=== PATIENT | female | born 1990 | race Caucasian/White ===

== ENCOUNTER 2017-08-04 11:47 | Emergency (ER) | payer OTHER ==
[~2017-08-04] VITALS: Ht 157.5 cm; Wt 49.9 kg
[2017-08-04 12:52] LABS: *BILIRUBIN,URIN NEGATIVE (NEGATIVE); *BLOOD, URINE NEGATIVE (NEGATIVE); *CLARITY,URINE CLOUDY (CLEAR); *COLOR,URINE YELLOW (YELLOW); *KETONES,URINE NEGATIVE (NEGATIVE); *PROTEIN,URINE TRACE (NEGATIVE); *UROBILINOGEN,URINE 0.2 E.U./dl (NORMAL); LEUKOCYTE ESTERASE ,URINE 1+ (NEGATIVE); NITRITE, URINE NEGATIVE (NEGATIVE); PH,URINE 6.5 (5.0-8.0); UGLUCOSE NEGATIVE (NEGATIVE)
[2017-08-04 13:23] LABS: BACTERIA,URINE MANY /HPF (NONE SEEN); SQUAMOUS EPITHELIAL CELL,UR MANY /HPF (NONE SEEN)
[2017-08-04 13:24] LABS: *URINE HCG, QUAL NEGATIVE (NEGATIVE); MUCUS,URINE MODERATE /LPF (0-FEW)
--- NOTE | 2017-08-04 14:46 | NUR ---
Patient discharged to home in stable conditon. Written and verbal after care instructions given. Patient verbalizes understanding of instructions. Stressed follow up with pmd or return to ER for worsening s/s.
== END 2017-08-04 14:48 | disposition home or self-care (01) ==
LOC: ER 12:03
DX: R09.1 Pleurisy (principal)
CPT/HCPCS: 71020; 84703; A4663

== ENCOUNTER 2017-12-15 09:43 | Emergency (ER) | payer OTHER ==
[~2017-12-15] VITALS: Ht 157.5 cm; Wt 48.5 kg
--- NOTE | 2017-12-15 10:00 | NUR ---
SEEN AND EXAMINED BY MD. CHIEF C/O OF FRONTAL HEADACHE LEVEL 5. DENIES OF ANY VISUAL DISTURBANCES. NO N/V NOTED. AWAKE, ALERT AND ORIENTEDX3.
--- NOTE | 2017-12-15 10:10 | NUR ---
Miranda osuna in ED - 12/15/17 at 1151 by DIAN PT WENT TO CT VIA W/C. CONDITION STABLE.
--- NOTE | 2017-12-15 10:12 | NUR ---
PT MEDICATED WITH TORADOL 30MG IM LEFT DELTOID FOR C/O BERMUDEZ ORDERED.
[2017-12-15] MEDS ORDERED: KETOROLAC TROMETHAMINE 30 MG INJ IM ONE (10:15)
--- NOTE | 2017-12-15 10:15 | NUR ---
PT WENT TO CT VIA W/C. CONDITION IS STABLE.
--- NOTE | 2017-12-15 10:25 | NUR ---
PT BACK FROM CT. ABLE TO SLEEP AND STATED BERMUDEZ IS LESSER.
[2017-12-15] MEDS ORDERED: KETOROLAC TROMETHAMINE 30 MG INJ ONE (10:29)
--- NOTE | 2017-12-15 11:45 | NUR ---
SPOKEN WITH PT AND EXPLAINED LAB AND CT RESULT. DISCHARGE INSTRUCTIONS GIVEN TO PT WITH GOOD UNDERSTANDING. BERMUDEZ DOWN TO ZERO.
[2017-12-15 11:50] VITALS: BP 110/71
--- NOTE | 2017-12-15 11:50 | NUR ---
PT IS DISCHARGED AMBULATING AND WILL BE PICKED UP BY HER BOYFRIEND. CONDITION IS STABLE AND ALL BELONGINGS ON HER POSSESSION.
== END 2017-12-15 11:50 | disposition home or self-care (01) ==
LOC: ER 09:43
DX: R51 Headache (principal)
CPT/HCPCS: 70450; A4663; J1885

== ENCOUNTER 2019-02-15 09:26 | Emergency (ER) | payer OTHER ==
[~2019-02-15] VITALS: Ht 157.5 cm; Wt 49.9 kg
--- NOTE | 2019-02-15 09:39 | NUR ---
ABIMAEL VELÁSQUEZ AT BEDSIDE FOR MSE.
--- NOTE | 2019-02-15 09:53 | NUR ---
PT TAKEN TO RADIOLOGY FOR CT SCAN.
--- NOTE | 2019-02-15 10:02 | NUR ---
PT BACK IN ER FROM RADIOLOGY.
[2019-02-15 10:12] LABS: *URINE HCG, QUAL NEGATIVE (NEGATIVE)
--- NOTE | 2019-02-15 10:29 | NUR ---
Patient discharged to home in stable conditon. Written and verbal after care instructions given. Patient verbalizes understanding of instructions. ALL BELONGINGS W/ PT. PT SELF-AMBULATED W/O DIFFICULTY.
[2019-02-15 10:33] VITALS: BP 108/72
== END 2019-02-15 10:33 | disposition home or self-care (01) ==
LOC: ER 09:26
DX: R51 Headache (principal); H43.391 Other vitreous opacities, right eye
CPT/HCPCS: 70450; 84703; A4663

== ENCOUNTER 2019-08-22 10:54 | Emergency (ER) | payer OTHER ==
[~2019-08-22] VITALS: Ht 154.9 cm; Wt 48.1 kg
[2019-08-22 11:35] LABS: *URINE HCG, QUAL NEGATIVE (NEGATIVE)
[2019-08-22 11:55] LABS: BASOPHILS # (AUTO) 0.1 K/uL (0.0-8.0); BASOPHILS % (AUTO) 1.2 % (0.0-2.0); EOSINOPHILS # (AUTO) 0.1 K/uL (0.0-0.7); HEMOGLOBIN 12.8 g/dL (10.9-14.3); LYMPHOCYTES # (AUTO) 2.3 K/uL (20.0-40.0); LYMPHOCYTES % (AUTO) 50.3 % (20.5-51.5); MEAN CORPUSCULAR HEMOGLOBIN 31.6 uug (24.7-32.8); MEAN CORPUSCULAR HGB CONC 33 g/dL (32.3-35.6); MEAN CORPUSCULAR VOLUME 96.7 fL (75.5-95.3); MONOCYTES # (AUTO) 0.6 K/uL (2.0-10.0); MONOCYTES % (AUTO) 12.4 % (0.0-11.0); NEUTROPHILS # (AUTO) 1.5 K/uL (1.8-8.9); NEUTROPHILS % (AUTO) 33.1 % (38.5-71.5); PLATELET COUNT (AUTO) 215 K/uL (179-408); RED BLOOD CELL COUNT(AUTO) 4.03 MIL/uL (3.63-4.92); WHITE BLOOD COUNT (AUTO) 4.6 K/uL (3.8-11.8)
[2019-08-22 12:02] LABS: CREATININE 0.8 mg/dL (0.6-1.3); POTASSIUM 4.2 mmol/L (3.5-5.1)
--- NOTE | 2019-08-22 12:23 | NUR ---
Patient discharged to home in stable conditon. Written and verbal after care instructions given. Patient verbalizes understanding of instructions. pt walked out of Er w/ steady gait, accompained by friend.
[2019-08-22 12:27] VITALS: BP 104/69
== END 2019-08-22 12:28 | disposition home or self-care (01) ==
LOC: ER 10:55
DX: R42 Dizziness and giddiness (principal)
CPT/HCPCS: 36415; 84703; 85025; 93005; A4663